=== PATIENT | male | born 1980 | race Two or more races ===

== ENCOUNTER 2023-11-17 02:09 | Inpatient (IN) | payer BC, SELFPAY ==
[2023-11-16 20:14] VITALS: BP 129/89
[2023-11-16 20:49] LABS: Urine Albumin Negative (Neg - Trace); Urine Bilirubin Negative (Negative); Urine Character Clear (Clear); Urine Color Yellow; Urine Glucose Negative (Negative); Urine Ketone Negative (Negative); Urine Leukocyte Negative (Negative); Urine Nitrite Negative (Negative); Urine Occult Blood 1+ (Negative); Urine Urobilinogen Negative (Neg - 1+)
[2023-11-16 21:03] VITALS: BP 137/86
[2023-11-16 21:06] LABS: Urine Squamous Cell 0-2 /LPF (Few)
[2023-11-16 21:07] LABS: Urine White Cell 0-2 /HPF (0-5)
[2023-11-16 21:08] LABS: Urine Bacteria Few (Negative)
[2023-11-16 21:15] LABS: % Basophils 0.5 % (0-2); % Eosinophils 1.5 % (0-6); % Immature Granulocytes 0.3 % (0-0.5); % Lymphocytes 13.8 % (20.5-51.1); % Monocytes 9.2 % (1.7-9.3); % Neutrophils 74.7 % (42.2-75.2); Absolute Basophils 0.1 10^3/uL (0-0.2); Absolute Eosinophils 0.2 10^3/uL (0-0.7); Absolute Lymphocytes 1.6 10^3/uL (1.2-3.4); Absolute Monocytes 1.1 10^3/uL (0.1-0.6); Absolute Neutrophils 8.9 10^3/uL (1.4-6.5); Hematocrit 40.1 % (39.0-52.0); Mean Corp Hgb Conc. 34.9 g/dL (33.0-37.0); Mean Corpuscular Volume 80.2 fL (80.0-94.0); Mean Platelet Volume 11.1 fL (7.4-10.4); Nucleated Red Blood Cells % 0 % (-); Platelet Count 207 10^3/uL (130-400); Red Cell Dist. Width 11.9 % (11.5-14.5); White Blood Cell Count 11.9 10^3/uL (4.8-10.8)
[2023-11-16 21:28] LABS: ALT (SGPT) 41 U/L (0-50); AST (SGOT) 30 U/L (17-59); Albumin 4.4 g/dl (3.5-5.0); Alkaline Phosphatase 114 U/L (38-126); Blood Urea Nitrogen 12 mg/dl (9-20); Calcium 9.9 mg/dl (8.4-10.2); Carbon Dioxide 27 mmol/L (22-30); Chloride 99 mmol/L (98-107); Glucose 97 mg/dl (70-99); Lipase 59 U/L (23-300); Potassium 3.9 mmol/L (3.5-5.1); Sodium 137 mmol/L (135-145); Total Bilirubin 0.6 mg/dl (0.2-1.3); Total Protein 7.1 g/dl (6.3-8.2); eGFR > 60.00
[2023-11-16 21:58] VITALS: BMI 24.5
[2023-11-16 21:59] VITALS: BMI 24.5
[2023-11-16 22:00] VITALS: BP 122/86
[2023-11-16] MEDS: TORADOL 30 MG IV (22:00)
[2023-11-16] MEDS: NSS 1000 IV (22:02)
--- NOTE | 2023-11-16 22:06 | ED.GENMED ---
History of Present Illness
General
Chief Complaint: Abdominal Symptoms
Source: patient
Exam Limitations: none
Time Seen by Provider: 11/16/23 21:46
History of Present Illness
History of Present Illness:
This is a 43 year old male that comes in with c/o abd pain and constipation. States that Constipation is not normal for him. States that this has been going on for 7 days. States that now the pain is mostly around his naval. States that he tried
Miralax and then over 3.5 days he took 8 tablets of X-lax. States that he had a little diarrhea about 36 hours ago. States that he is nauseated. Denies any fever, chills, chest pain, SOB, vomiting, diarrhea, headache, dizziness, urinary burning.
Past History
Past History
ED Past Medical History: Asthma; Negative HTN, Hypercholesterolemia or NIDDM
ED Past Surgical History: Other (Cyst removed from back. )
Social History
Tobacco: Non-smoker
Alcohol: None
Personal:
Living: with family
Review of Systems
Review of Systems
All Other Systems: ROS reviewed and negative except as documented in HPI and ROS
Constitutional: Reports no symptoms; Denies fever or chills
EENT: Reports no symptoms
Respiratory: Reports no symptoms; Denies cough or trouble breathing
Cardiac: Reports no symptoms; Denies chest pain
ABD/GI: Reports abdominal pain, nausea and diarrhea (slight 36 hours abo); Denies vomiting
: Reports no symptoms; Denies dysuria, frequency or urgency
Musculoskeletal: Reports no symptoms
Skin: Reports no symptoms
Neurological: Reports no symptoms; Denies dizzy or headache
Psychiatric: Reports no symptoms
Phy Exam
General Physical Exam
General Presentation: no apparent distress
General age: appears stated age
General Skin: warm and dry
General Habitus: normal
General Mental: alert
General Hydration: appears well hydrated
ENT Exam
ENT Exam: TM's normal, pharynx normal and neck supple
Eye Exam
Eye Exam: EOMI
Cardiovascular Exam
Cardiovascular Exam: regular rate/rhythm, no edema, no murmur and normal peripheral pulses
Pulmonary Exam
Pulmonary Exam: lungs clear, no respiratory distress, no rales, chest non tender, no crackles, no rhonchi, no wheezing and no cough
Gastrointestinal Exam
Gastrointestinal Exam: normal bowel sounds, soft, no organomegaly, no pulsatile mass, non distended and tender (right sided abd tenderness with palpation)
Musculoskeletal Exam
Musculoskeletal Exam: full ROM and no edema
Skin Exam
Skin Exam: normal color, warm/dry, no rash and no petechia
Psychiatric Exam
Psychiatric Exam: normal mood/affect
Course
Orders/Labs/Results
Orders:
Orders
11/16/23 20:20
Electrocardiogram (*1) Urgent
Reason for Study: Abdominal Pain
EKG- Treatment ONCE
IV Insert/Care/Rem.- Treatment PRN
11/16/23 20:31
Urinalysis Reflex To Culture Urgent
Date Specimen was Collected: 11/16/23
Time Specimen was Collected: 20:20
Urine Microscopic Reflex Cult Urgent
11/16/23 20:58
Complete Blood Count/With Diff Urgent
Comprehensive Metabolic Panel Urgent
Lipase Urgent
11/16/23 21:57
0.9% Sodium Chloride 1000 ml [Nss] 1,000 ml IV BOLUS
Ketorolac [Toradol] 30 mg IV NOW STA
11/16/23 22:06
Iohexol [Omnipaque] See Protocol PO NOW STA
11/16/23 22:08
Ondansetron Injectable [Zofran] 4 mg IV NOW STA
11/17/23 00:15
CT Abd/pel W Iv And Oral Contr Urgent
Reason For Exam: right lower abd pain
11/17/23 00:59
Piperacillin/Tazo 3.375 Gram [Zosyn] 3.375 gram in 50 ml IV NOW
Abnormal Lab Results
11/16/23 11/16/23
20:31 20:58
WBC 11.9 H 10^3/uL
(4.8-10.8)
MPV 11.1 H fL
(7.4-10.4)
Absolute Neuts (auto) 8.9 H 10^3/uL
(1.4-6.5)
Absolute Monos (auto) 1.1 H 10^3/uL
(0.1-0.6)
Lymphocytes % 13.8 L %
(20.5-51.1)
Ur Occult Blood Reflex 1+ A
(Negative)
Urine RBC 3-6 A /HPF
(0-2)
Urine Bacteria (Reflex) Few A
(Negative)
11/16/23 20:58
11/16/23 20:58
Leukocytosis, Urine negative for infection. Lipase normal at 59,
Vital Signs
Initial and Last Documented VS:
Initial Vital Signs
Temp Pulse Resp BP Pulse Ox
99.4 F 100 20 129/89 100
11/16/23 20:14 11/16/23 20:14 11/16/23 20:14 11/16/23 20:14 11/16/23 20:14
Last Documented Vital Signs
Temp Pulse Resp BP Pulse Ox
99.4 F 100 20 122/86 100
11/16/23 20:14 11/16/23 20:14 11/16/23 20:14 11/16/23 22:00 11/17/23 00:08
MDM/Problems Addressed
Differential Diagnosis Includes:
appendicitis. Constipation
MDM/Problems Addressed:
This is a 43 year old male that comes in with c/o abd pain for the past 7 days. States that he has not had a normal BM and has tried laxatives without much success. Patient states that his pain is now around the naval.
Will check labs, CT scan, IV fluids and pain medication .
Back into see patient. Explained that he has a ruptured appendicitis. Will admit patient and start antibiotics. Dr. Burciaga notified and he will take patient on his service. IV antibiotics started.
Chronic conditions affecting care:
NA
Acute Exacerbation and/or Progression of Chronic Illness:
NA
*Radiology
Radiology exam reviewed: radiology read reviewed (CT night hawk- Acute ruptured appendicitis. The appendix is inflamed with wall thickening and dilation up to 3cm. There is a defect in the inferior wall of the appendix, best seen on coronal image
23. There is an adjacent 2.4 cm fluid collection without peripheral enhancement to suggest abscess.) and other (CT cont Moderate wall thickening of the adjacent distal ileum. )
*Pulse Oximetry
Patient hypoxic: no
*EKG
Interpreted by ED Provider?: NA
Rate: EKG- N/A
*Scooter Mechanic Interpretation
Rate: Scooter Mechanic- N/A
*Critical Care Note
Total Time (30-74mins, 75-104mins- exclusive of procedures): Not Applicable
ED Attending Note
-
Portions of this chart may have been created with voice recognition software.� Occasional wrong word or��sound alike� substitutions may have occurred due to the inherent limitations of voice recognition software.
Discharge Plan
Departure
Patient Disposition: Admit
Date of Disposition: 11/17/23
Time of Disposition: 01:12
Admit to: Med/Surg
Presentation/result/management discussed w/ accepting MD/DO: Dr. Burciaga
Patient with high blood pressure during this ER visit?: No
Condition: Good
Covid-19: Not Applicable
Discharge Problem:
Acute appendicitis with rupture
Referrals:
Kelvin Uriarte CRNP [Family Provider] -
Interventions
Interventions:
*Risk Screen - Suicide Last Done: 11/16/23 20:14
*General Assessment Last Done: 11/16/23 20:14
*Neglect/Abuse Screening Last Done: 11/16/23 20:14
ED- Fall Risk Assessment Last Done: 11/16/23 20:14
*ED COVID-19 Vaccine History Last Done: 11/16/23 20:14
HI-Fnpcqo-Fncgxprute Assessment Last Done: 11/17/23 00:08
Discharge Date and Time
Print Language: CHILEAN
[2023-11-16] MEDS: ZOFRAN 4 MG IV (22:13)
[2023-11-16] MEDS: OMNIPAQUE 50 ML PO (22:13)
[2023-11-16 23:00] VITALS: BP 120/81
[2023-11-17] VITALS (18 sets, daily range): BP systolic 5–136; BP diastolic 65–89; BMI 24.2
[2023-11-17] MEDS: ZOSYN 50 IV ×3 (01:24→20:18)
--- NOTE | 2023-11-17 01:56 | HPS.HSE ---
Addendum entered and electronically signed by Jeff Burciaga MD 11/17/23 08:55:
Patient seen and examined independently of admitting nurse petitioner. Agree with documented history and physical with additions noted here.
HPI: 43-year-old male who was in his usual baseline state of health until about 5 to 7 days ago when he began having abdominal bloating, distention and constipation. This is atypical for him and he was attempting a bowel regimen to alleviate it.
He then began having abdominal pain in the periumbilical region and a bit towards the right lower quadrant. Nausea, anorexia and low-grade fevers prompting emergency department evaluation yesterday.
No significant past medical history, no past abdominal surgical history
AFVSS
NAD AAOx3
ABD: Soft mildly distended some tympany on percussion. Tenderness palpation localized in the right lower quadrant with voluntary guarding and rebound on deep palpation.
CT imaging: Dilated appendix with periappendiceal inflammatory changes. Probable perforation with reactive fluid adjacent but no drainable abscess. No significant bowel wall thickening in the region of the cecum. TI adjacent to the appendix does
have some reactive inflammatory changes.
Assessment/plan: 43-year-old male with acute appendicitis likely complicated by perforation with localized abscess and localized peritonitis.
Reviewed in detail with the patient and his at bedside treatment options including attempted nonoperative management versus appendectomy. We discussed the risks and benefits of either approach. Given length of symptoms none perforation there
is potential higher risk for difficulty controlling base of the appendix however based on CT imaging cecum does not appear to be severely inflamed or thickened so appendectomy appears to be likely achievable. If we are to treat nonoperatively and
infection/inflammatory response was to progress and get worse then appendectomy would likely be even more challenging in a few days. Therefore discussed with patient that I am leaning towards appendectomy for definitive management today. After our
lengthy discussions patient and his are in agreement.
Laparoscopic appendectomy, possible ileocecectomy was reviewed in detail including the operative technique and potential operative findings with her management utilizing a diagram and drawing. We discussed alternative treatment options including
nonoperative management, benefits and risks of surgery such as but not limited to bleeding, infectious of wound related complications, iatrogenic injury to surrounding viscera, anastomotic related complications of resection required, staple line
leak. Reviewed postoperative hospitalization and care pending operative findings as well as subsequent recovery.
Any of the patient's or his 's concerns or questions were fully addressed and written informed consent was obtained.
Patient on OR schedule today for appendectomy
Continue Zosyn
Continue supportive care
Original Note:
Family Physician
-
Family Physician: MICHELLE De La Rosa
Chief Complaint
-
abd pain, constipation x 7 days
History of Present Illness
This is a 43 year old male no Pmhx that comes in with c/o abd pain and constipation. States that this has been going on for 7 days. PT states that initially he started with diffuse abd discomfort and felt bloated and constipated. States that
Constipation is not normal for him. States that he tried Miralax x1 and then about 36h ago he took 8 tablets of X-lax and had a little diarrhea. States that now the pain is mostly around his naval. States that he is nauseated. States he had low
grade fever. Denies any chills, chest pain, SOB, vomiting, diarrhea, headache, dizziness, urinary burning.
ED treatments:
IVFx1
toradol (which help pain)
zofran
zosyn
WBC 11.9
[address] abd:Acute ruptured appendicitis. The appendix is inflamed with wall thickening and dilation up to 3cm. There is a defect in the inferior wall of the appendix, best seen on coronal image 23. There is an adjacent 2.4 cm fluid collection without
peripheral enhancement to suggest abscess.) and other (CT cont Moderate wall thickening of the adjacent distal ileum. )
Medical History
Past Medical History
Past Medical History: Reports None
Past Surgical History: Reports Other (cyst removed from back)
Social History
Tobacco: Non-smoker
Alcohol: None
Drug: None
Personal:
Living: With Family
Employment: Employed
Family History
Family History: Not pertinent
Allergies / Home Medications
Allergies reflects when Allergies were last updated in [facility].
Home Medications with original date entered in [employer] [facility]
Allergy/Medication List:
Allergies
Allergy/AdvReac Type Severity Reaction Status Date / Time
No Known Allergies Allergy Verified 11/16/23 20:14
Home Medications
Ex-Lax 25 mg PO PRN PRN constipation 11/17/23
polyethylene glycol 3350 17 gram oral powder packet (Miralax) 17 g PO PRN PRN Constipation 11/17/23
Review of Systems
-
History Source: Patient
A 12 point ROS was completed and negative except as noted: Yes
Constitutional: Reports Fever (low grade) and Other (abd pain and constipation)
EENT: Reports No Symptoms
Respiratory: Reports No Symptoms
Cardiac: Reports No Symptoms
Abdomen/GI: Reports Abdominal Pain, Nausea and Constipated
: Reports No Symptoms
Musculoskeletal: Reports No Symptoms
Skin: Reports No Symptoms
Neurological: Reports No Symptoms
Endocrine: Reports No Symptoms
Hematologic/Lymphatic: Reports No Symptoms
Psych: Reports No Symptoms
Physical Exam
Vital Signs
Vital Signs
Temp Pulse Resp BP Pulse Ox
99.4 F 100 20 122/86 100
11/16/23 20:14 11/16/23 20:14 11/16/23 20:14 11/16/23 22:00 11/17/23 00:08
Physical Exam
General: Well Developed, Well Nourished, No Apparent Distress and Comfortable
HEENT: NormoCephalic, Anicteric and Moist mucous membranes
Respiratory: Clear and Non Labored Respirations
Breast: Deferred by me
GI: Soft, Normal Bowel Sounds, Tender (mostly around navel, but with palpation RLQ tender) and Distended
Genito-urinary: Deferred by me
Musculoskeletal: No Clubbing and No Cyanosis
Skin: Warm and Dry
Neuro: Awake, AO x 3 and No Motor Deficits
Hematologic/Lymphatic: No Lymphadenopathy
Psych: Calm
Laboratory Results
-
11/16/23 20:58
11/16/23 20:58
Laboratory Results
Total Bilirubin 0.6 mg/dl (0.2-1.3) 11/16/23 20:58
AST 30 U/L (17-59) 11/16/23 20:58
ALT 41 U/L (0-50) 11/16/23 20:58
Alkaline Phosphatase 114 U/L (38-126) 11/16/23 20:58
Lipase 59 U/L (23-300) 11/16/23 20:58
Data Reviewed
-
CT Scan: Report Reviewed by me and Discussed with Physician
Impression/Plan
-
IMPRESSION:
43 yo male with no past medical hx come in with complaints of 7 day hx of diffuse abd pains and constipation. Found to have leukocytosis and ct abd shows acute ruptured appendix.
PT remains hemodynamically stable at present. Abd distention present but soft and without signs of peritonitis.
PLAN:
Admit to service of Dr Burciaga
med surg
#ruptured appendicitis
-NPO x meds (OR vs IR drainage)
-IVF: LR@125
-pain control: tylenol, toradol, dilaudid prn
-zofran prn
- Cont zosyn q6h
-WBC 11.9--> repeat cbc in am
DVT proph: scd for now,
Full code
[2023-11-17] MEDS: LR 1000 IV ×3 (03:04→21:22)
--- NOTE | 2023-11-17 03:18 | PTCARENOTE ---
Pt arrived to floor via stretcher from the ED. PT AAOx3, pt able to ambulate from stretcher to bed without difficulty. Pt used bathroom independently. Pt reports ABD pain 3/10 at this time post pain medication in the ED. Pt reports tenderness to
right lower abd, intermittent cramping/ pain. Hyper bowel, round abd. denies nausea at this time. Denies need for pain medication at this time. Right AC int infusing LR@125ml/hr as ordered. call tompkins in reach. Will continue to monitor.
[2023-11-17 06:37] LABS: % Basophils 0.5 % (0-2); % Immature Granulocytes 0.3 % (0-0.5); % Lymphocytes 16.1 % (20.5-51.1); % Neutrophils 72.1 % (42.2-75.2); Absolute Basophils 0.1 10^3/uL (0-0.2); Absolute Eosinophils 0.2 10^3/uL (0-0.7); Absolute Lymphocytes 1.6 10^3/uL (1.2-3.4); Absolute Monocytes 0.9 10^3/uL (0.1-0.6); Absolute Neutrophils 7.2 10^3/uL (1.4-6.5); Hematocrit 37.4 % (39.0-52.0); Hemoglobin 12.9 g/dL (13.0-18.0); Mean Corp Hgb Conc. 34.5 g/dL (33.0-37.0); Mean Corpuscular Hgb 28.5 pg (27.0-31.0); Mean Corpuscular Volume 82.6 fL (80.0-94.0); Nucleated Red Blood Cells % 0 % (-); Platelet Count 182 10^3/uL (130-400); Red Blood Cell Count 4.53 10^6/uL (4.70-6.10); Red Cell Dist. Width 11.7 % (11.5-14.5)
--- NOTE | 2023-11-17 06:40 | PTCARENOTE ---
Pt continues to report pain at tolerable level. Denies need for pain medication. IVF infusing as ordered. Will continue to monitor.
[2023-11-17 07:08] LABS: ALT (SGPT) 35 U/L (0-50); AST (SGOT) 27 U/L (17-59); Albumin 3.6 g/dl (3.5-5.0); Alkaline Phosphatase 102 U/L (38-126); Blood Urea Nitrogen 11 mg/dl (9-20); Calcium 8.8 mg/dl (8.4-10.2); Carbon Dioxide 25 mmol/L (22-30); Chloride 102 mmol/L (98-107); Estimated Creatinine Clearance 105 ml/min; Glucose 99 mg/dl (70-99); Potassium 3.5 mmol/L (3.5-5.1); Sodium 131 mmol/L (135-145); Total Protein 6.1 g/dl (6.3-8.2); eGFR > 60.00
--- NOTE | 2023-11-17 08:48 | W.SUR.PREOP ---
Pre-Operative Surgical Note
-
I have examined this patient prior to the performance of the scheduled procedure.
The patient's condition is unchanged from the time of the current History and
Physical and the patient is able to undergo the scheduled procedure.
--- NOTE | 2023-11-17 11:21 | W.IMMPOSTOP ---
Addendum entered and electronically signed by Jeff Burciaga MD 11/17/23 11:37:
#[id number]
Original Note:
Surgical Immed Post Op Note
-
Primary Surgeon: Gualberto
Assisting Surgeon: Mikayla Azar
Pre-op Diagnosis: Acute appendicitis with abscess and localized peritonitis
Post-op Diagnosis: Acute appendicitis with abscess and localized peritonitis
Procedure Performed: Laparoscopic appendectomy
Anesthesia Type: GETA +0.25% Marcaine with epinephrine
Specimen / Cultures: Appendix/none
Estimated Blood Loss: 8 mL
Complications: None immediate
Operative Findings: Walled off/contained appendiceal abscess between mesentery of TI and mid appendix. Distended indurated and thickened mid to distal appendix. Base of appendix and cecum with minimal inflammation. Mesoappendix divided with
harmonic scalpel to expose base of appendix/cecum. Appendectomy completed with ALFREDO purple 45 mm stapler and second 30 mm stapler to complete distal transection along cecum.
Drain: 19 Fransisco from left 8 mm trocar site placed into pelvis and right lower quadrant where Appendix removed and abscess cavity was evacuated
Plan: Full liquid diet today monitoring for ileus.
Maintain CHEN but anticipate removal prior to discharge home
Continue IV antibiotics 48 hours postop for management of complicated appendicitis with increased risk of developing postoperative abscess
Updated patient's in waiting area postoperatively
[2023-11-17] MEDS: ZOSYN IV (12:01)
--- NOTE | 2023-11-17 15:00 | PTCARENOTE ---
pt received from PACU at 1320. assessment as documented. pt felt as if he was going to move his bowels and assisted to ambulate to bathroom -pt did void moderate amount but no BM noted. pt assisted back to bed. pt tolerated full liquid tray.
IVF infusing. will observe.
--- NOTE | 2023-11-17 15:33 | CM ---
Met with patient and at the bedside; initial assessment completed
Pharmacy verified: Mine @ [address] [place] [address]
Patient lives with and 2 children ages 4 and 8 in a multilevel home; 3 steps to enter; 15-16 steps between floors. Full bath and bedroom on the 1st floor; 2nd floor bath that patient uses to bath has a stall shower
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
No SNF history
No DME
will transport home
Plan: discharge to home when medically stable; CM will monitor for DC needs
[2023-11-17] MEDS: TORADOL 10 MG IV (21:22)
[2023-11-18] MEDS: ZOSYN 50 IV ×4 (02:28→20:00)
[2023-11-18] MEDS: FLUSH (NSS) 2 FLUSH IV (02:30)
[2023-11-18 03:15] VITALS: BP 121/78
[2023-11-18] MEDS: LR 1000 IV ×2 (05:52→13:07)
--- NOTE | 2023-11-18 07:01 | W.PN.GS2 ---
Addendum entered and electronically signed by Leonardo Sosa MD, Resident 11/21/23 12:47:
Acute asymptomatic hyponatremia- likely dilutional from IV fluids
Addendum entered and electronically signed by Jeff Burciaga MD 11/18/23 13:36:
Patient seen and examined with resident this a.m.
Postop pain control. Preoperative appendicitis pain resolved/nearly gone.
Voiding.
Passing flatus on occasion and feels urge to have bowel movement
No nausea, tolerating full liquids. Mild abdominal bloating and distention but not getting worse.
AFVSS
NAD AAOx3
ABD: Softly distended, tenderness to palpation at incision sites and right lower quadrant but no rebound rigidity or guarding
CHEN with serosanguineous fluid -a bit more sanguinous than serous. No clots though.
Assessment/plan: 43-year-old male POD #1 status post lap appendectomy for acute appendicitis complicated by perforation with abscess and localized peritonitis
No initial signs of significant ileus -if continues to tolerate full liquids throughout the day may start low residue
Advised patient to maintain low residue diet and smaller portions for first few weeks postoperatively as there was significant inflammation in the terminal ileum reactive in nature from severity of appendicitis
Continue Zosyn and anticipate DC home on Augmentin to complete a total of 1 week course of postoperative antibiotics
Ambulate
Continue supportive care
CHEN will be removed prior to discharge home
Original Note:
Today's Communication / Plan
-
Continue IV fluid
LRD for dinner tonight
Continue antibiotic
Assessment / Plan
-
43-year-old male POD #1 s/p laparoscopic appendectomy for acute appendicitis with abscess and localized peritonitis.
-Diet: Continue with full for breakfast and lunch; LRD for dinner
-Continue IV fluids; lower rate
-Antibiotics: IV Zosyn in the hospital with transition to p.o. antibiotic upon discharge
-Maintain drain for now, anticipating removal Before discharge
-Passing flatus; awaiting bowel movement-might need suppository
Potential discharge tomorrow if stable.
Time Spent
Total Time Spent with Patient (in minutes): 15
Subjective Data
-
Date of Service: November 18, 2023
Interval data: Significant improvement in abdominal pain. Denies nausea/vomiting. Positive flatus, no stools as of now.
Objective Data
-
Intake and Output
11/17/23 11/18/23 11/19/23
06:59 06:59 06:59
Intake Total 500 / 500 2209 / 2209
Output Total 2039 / 2039
Balance 500 / 500 169 / 169
Intake:
Oral fluids 491 / 491
IV fluids (Total) 500 / 500 1618 / 1618
Lr 1,000 ml @ 125 mls/hr IV .
Q8[facility] Rx#:[id number]
norm 25 / 25
IV piggybacks 100 / 100
Output:
Drain Output (Total) 40 / 40
Left Abdomen Nic-Ramirez 40 / 40
Urine, Voided 1999 / 1999
Other:
Number of approximated MODERATE 1 1
amounts of urine
Vital Signs
Temp Pulse Resp BP Pulse Ox
98.6 F 72 18 121/78 100
11/18/23 03:15 11/18/23 03:15 11/18/23 03:15 11/18/23 03:15 11/18/23 03:15
Lab Results
11/17/23 05:15
11/17/23 05:15
Calcium 8.8 mg/dl (8.4-10.2) 11/17/23 05:15
Total Bilirubin 1.0 mg/dl (0.2-1.3) 11/17/23 05:15
AST 27 U/L (17-59) 11/17/23 05:15
ALT 35 U/L (0-50) 11/17/23 05:15
Alkaline Phosphatase 102 U/L (38-126) 11/17/23 05:15
Total Protein 6.1 g/dl (6.3-8.2) L 11/17/23 05:15
Albumin 3.6 g/dl (3.5-5.0) 11/17/23 05:15
Physical Exam
-
General: No acute distress
Abdominal: Soft, no distention, minimal tenderness near the incision sites, incision clean and intact with glue dressing.
CHEN drain with SSF
[2023-11-18 07:10] VITALS: BP 130/77
[2023-11-18] MEDS: DULCOLAX 10 MG RECTAL (11:15)
[2023-11-18 11:32] VITALS: BP 130/72
--- NOTE | 2023-11-18 12:25 | PN.CDI ---
CDI
- -
CDI:
Physician Documentation Request
Admit Date: 11/17/23 02:09
Dear Doctor Ian,
Patient is s/p laparoscopic appendectomy for acute appendicitis with abscess and localized peritonitis.
Sodium results:
Laboratory Tests
11/16/23 11/17/23
20:58 05:15
Sodium 137 131 L
Could you please provide a diagnosis that supports the above lab abnormalities and additional evaluation, monitoring:
hyponatremia
Abnormal lab value clinically insignificant
Other
Use of terms such as suspected, likely, concern for, or probable (associated with a specific diagnosis that is being evaluated, monitored, or treated as if it exists) are acceptable and can be coded in the inpatient setting, when documented at the
time of discharge.
Thank you,
Prerna Addison RN, BSN
CDI Specialist
tiger text
Please use your independent medical judgment in providing your response.
[2023-11-18 15:10] VITALS: BP 121/73
[2023-11-18] MEDS: TORADOL 10 MG IV (18:31)
[2023-11-18 23:20] VITALS: BP 121/83
[2023-11-19] MEDS: LR 1000 IV ×2 (00:41→08:07)
[2023-11-19] MEDS: ZOSYN 50 IV ×2 (02:30→08:07)
--- NOTE | 2023-11-19 08:48 | W.PN.GS2 ---
Today's Communication / Plan
-
dispo planning
Assessment / Plan
-
43-year-old male POD #2 s/p laparoscopic appendectomy for acute appendicitis with abscess and localized peritonitis.
AFVSS
Tolerating diet
+BM/flatus
-Diet: Continue LRD
-D/C IVF
-Antibiotics: IV Zosyn in the hospital with transition to p.o. Augmentin upon discharge
-CHEN removed at bedside
Discharge to home
Subjective Data
-
Date of Service: November 19, 2023
Patient seen and examined at bedside with Dr. Daniel. Denies n/v. Tolerating diet. +BM yesterday afternoon. Pain is minimal.
Objective Data
-
Intake and Output
11/18/23 11/19/23 11/20/23
06:59 06:59 06:59
Intake Total 1809 / 1809 3540 / 3540 480 / 480
Output Total 2040 / 2040 2380 / 2380 895 / 895
Balance -231 / -231 1160 / 1160 -415 / -415
Intake:
Oral fluids 491 / 491 1140 / 1140 480 / 480
IV fluids (Total) 1218 / 1218 2200 / 2200
Lr 1,000 ml @ 125 mls/hr IV .
[facility] Rx#:[id number]
norm 25 /
IV piggybacks 100 / 100 200 / 200
Output:
Drain Output (Total) 40 / 40 55 / 55 20 / 20
Left Abdomen Nic-Ramirez 40 / 40 55 / 55 20 / 20
Urine, Voided 1999 2325 / 2325 875 / 875
Other:
Number of approximated MODERATE 1 1
amounts of urine
Vital Signs
Temp Pulse Resp BP Pulse Ox
98.2 F 66 16 121/83 98
11/18/23 23:20 11/18/23 23:20 11/18/23 23:20 11/18/23 23:20 11/18/23 23:20
Lab Results
11/17/23 05:15
11/17/23 05:15
Calcium 8.8 mg/dl (8.4-10.2) 11/17/23 05:15
Total Bilirubin 1.0 mg/dl (0.2-1.3) 11/17/23 05:15
AST 27 U/L (17-59) 11/17/23 05:15
ALT 35 U/L (0-50) 11/17/23 05:15
Alkaline Phosphatase 102 U/L (38-126) 11/17/23 05:15
Total Protein 6.1 g/dl (6.3-8.2) L 11/17/23 05:15
Albumin 3.6 g/dl (3.5-5.0) 11/17/23 05:15
Physical Exam
-
General: No acute distress
Abdominal: Soft, no distention, minimal tenderness near the incision sites, incision clean and intact with glue dressing.
CHEN drain with SSF (removed)
[2023-11-19] MEDS: TORADOL 10 MG IV (09:54)
[2023-11-19 11:58] VITALS: BP 130/87
--- NOTE | 2023-11-21 12:01 | W.DCSUMMARY ---
Discharge Summary
Discharge Data
Date of Admission: 11/17/23
Date of Discharge: 11/19/23
-
Pending Results: No
Hospital Course
Mr Lozano is a 43 yo male who presented with 5-7 days of abdominal discomfort with bloating with CT imaging and exam consistent with appendicitis with perforation suspected. He was taken to the OR for laparoscopic appendectomy with abscess and
peritonitis noted intraoperatively. A CHEN drain was place intraoperatively and able to be removed prior to discharge as clear serosanguineous outputs noted through his admission. Diet was able to be advanced and well tolerated with passage of flatus
and stool prior to discharge. Once pain was controlled and the patient was tolerating solid foods, he was discharged to home with family with outpatient follow up planned in the coming weeks.
Discharge Plan
-
Patient Disposition: Home (Routine Discharge)
Discharge Diagnosis/Procedures: Acute appendicitis with abscess; laparoscopic appendectomy
Condition: Good
Diet: As tolerated and Regular
Additional Diets: Smaller meals if experiencing abdominal bloating and distention
Activity: No strenuous activity
Additional Activity: No lifting over 15 to 20 pounds for 4 weeks postoperatively
Driving Restrictions: No driving for 2 to 3 days postop OR IF on narco
Bathing Restrictions: OK to Shower
Activity Restrictions/Additional Instructions:
Call your surgeon if you have nausea with vomiting, worsening pain or a fever >100.5
Referrals:
Jeff Burciaga MD [Active] - in two to three weeks
Prescriptions:
New
acetaminophen [acetaminophen] 325 mg tablet
650 mg PO Q4HPRN PRN (Reason: mild pain) Qty: 1 0RF
ibuprofen 200 mg tablet
400 - 600 mg PO Q6HPRN PRN (Reason: moderate pain) Qty: 1 0RF
amoxicillin-pot clavulanate 875-125 mg tablet
1 tab PO Q12 Qty: 12 0RF
oxycodone 5 mg tablet
5 mg PO Q4HPRN PRN (Reason: breakthrough/severe pain) Qty: 5 0RF
Continued
polyethylene glycol 3350 [Miralax] 17 gram Powder In Packet
17 g PO PRN PRN (Reason: Constipation)
Vitamin C
1 tab PO 1XD
Discontinued
Ex-Lax 25 mg tablet
25 mg PO PRN PRN (Reason: constipation)
Discharge Orders:
Discharge Patient (As Directed); Ordered 11/19/23
Ordered By: Kristin Amaya
Discharge Date and Time
Discharge Date/Time: 11/19/23 12:00
Print Language: TOGOLESE
== END 2023-11-19 12:00 | disposition home or self-care (01) | DRG 398 ==
LOC: 2 SOUTH 02:09
PROVIDERS: Nurse Practitioner Family; Student in an Organized Health Care Education/Training Program; ADMITTING PHYSICIAN Surgery; EMERGENCY PHYSICIAN Student in an Organized Health Care Education/Training Program; FAMILY PHYSICIAN Nurse Practitioner Family
PROC: 0DTJ4ZZ Resection of Appendix, Percutaneous Endoscopic Approach (ICD-10-PCS; 2023-11-17)
DX: K35.33 Acute appendicitis with perforation, localized peritonitis, and gangrene, with abscess (principal); E87.1 Hypo-osmolality and hyponatremia
CPT/HCPCS: 88304; 74177; 80053; 81003; 81015; 83690; 85025; 93005; 99285; C1776; Q9967